=== PATIENT | female | born 1955 | race American Indian/Alaskan Native ===

== ENCOUNTER 2019-05-27 06:12 | Day surgery (SDC) | payer OTHER ==
[2019-05-22 11:22] LABS: Basophils # (Auto) 0.1 K/mm3 (0.0-0.1); Basophils % (Auto) 1.4 % (0.0-1.8); Eosinophils # (Auto) 0.2 K/mm3 (0.0-0.4); Eosinophils % (Auto) 2.4 % (0.0-4.3); Hematocrit 24.3 % (30.3-42.9); Hemoglobin 7.7 gm/dl (10.1-14.3); Lymphocytes # (Auto) 2.1 K/mm3 (1.2-5.4); Lymphocytes % (Auto) 25.3 % (13.4-35.0); Mean Corpuscular HGB Conc 32 % (30-34); Mean Corpuscular Volume 80 fl (79-97); Monocytes # (Auto) 0.6 K/mm3 (0.0-0.8); Monocytes % (Auto) 6.8 % (0.0-7.3); Platelet Count 357 K/mm3 (140-440); Red Blood Count 3.05 M/mm3 (3.65-5.03); Red Cell Distribution Width 16.2 % (13.2-15.2)
[2019-05-22 11:29] LABS: Calcium 9.3 mg/dL (8.4-10.2)
--- NOTE | 2019-05-22 12:25 | Anesthesia Consultation ---
Anesthesia Consult and Med Hx Date of service: 05/22/19 - Airway Anesthetic Teeth Evaluation: Good ROM Head & Neck: Adequate Mental/Hyoid Distance: Adequate Mallampati Class: Class II Intubation Access Assessment: Probably Good - Pulmonary Exam CTA: Yes - Cardiac Exam Cardiac Exam: RRR - Pre-Operative Health Status ASA Pre-Surgery Classification: ASA3 Proposed Anesthetic Plan: General - Pulmonary Hx Smoking: No Hx Asthma: Yes (last inhaler 3 yrs ago) Hx Respiratory Symptoms: No Hx Sleep Apnea: Yes (compliant with CPAP) - Cardiovascular System Hx Hypertension: Yes Hx Heart Attack/AMI: No - Central Nervous System CVA: No - Gastrointestinal Hx Gastroesophageal Reflux Disease: Yes (diet controlled) - Endocrine Hx Renal Disease: Yes (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 Patient denies hx of renal disease however creatinine and potassium elevated on labs drawn in pre-assessment. Will make surgeon aware of lab abnormalities prior to scheduled procedure.
--- NOTE | 2019-05-26 19:12 | History and Physical Report ---
History of Present Illness Date of examination: 05/22/19 History of present illness: Patient has been reassessed/reevaluated. H&P has been reviewed. No interval changes. This is a 64 years old female who presents with postmenopausal bleeding The patient complains of abnormal periods, menorrhagia, and metrorrhagia. She complains of heavy bleeding and clotting. Patient's work up has included hysterosonogram with endometrial biopsy.Pathology consistent endometrial polyp no carcinoma. Diagnosis of post menopausal explained. Malignancy risk explained to patient. Vital Signs: Patient Profile: 64 Years Old Female Height: 50 inches (127 cm) Weight: 191 pounds (86.82 kg) BMI: 53.71 BSA: 1.61 Past History : 2 Term Births: 2 Premature Births: 0 Living Children: 2 Para: 2 Mult. Births: 0 Prev : 2 Aborta: 0 Elect. Ab: 0 Spont. 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 Current Allergies (reviewed today): No known allergies Past Medical History: Diabetes Hypertension Fibroids Past Surgical History: (1973) with Tubal Ligation (1976) Family History Summary: Other family member - Has Family History of Diabetes - Entered On: 04/08/2019 Other family member - Has Family History of Hypertension - Entered On: 04/08/2019 Other family member - Has No Family History of Breast Cancer - Entered On: 04/08/2019 Other family member - Has No Family History of Colon Cancer - Entered On: 04/08/2019 Other family member - Has No Family History of Ovarvian Cancer - Entered On: 04/08/2019 Social History: Marital Status: Children: 2 Occupation: Retired [employer] Smoking History: Patient has never smoked. Risk Factors: Smoked Tobacco Use: Former smoker Smokeless Tobacco Use: Never Passive smoke exposure: no Drug use: no HIV high-risk behavior: no Alcohol use: yes Exercise: yes Seatbelt use: 100 % Review of Systems General Denies fever, chills, sweats, anorexia, fatigue, weakness, malaise, weight loss and sleep disorder. Complains of menorrhagia. Denies vaginal discharge, incontinence, dysuria, hematuria, urinary frequency, amenorrhea, abnormal vaginal bleeding, pelvic pain, genital sores, decreased libido, painful periods, painful sex, urinary urgency, hot flashes, vaginal dryness, vaginal itching and vaginal odor. CV Denies chest pains, palpitations, syncope, dyspnea on exertion, orthopnea, PND and peripheral edema. Resp Denies cough, dyspnea at rest, excessive sputum, hemoptysis, wheezing and pleurisy. GI Denies nausea, vomiting, diarrhea, constipation, change in bowel habits, abdominal pain, melena, hematochezia, jaundice, gas/bloating, indigestion/heartburn, dysphagia and odynophagia. Breast Denies left breast lump, right breast lump, nipple discharge, bloody discharge from nipple, breast pain, abnormal mammogram and breast enlargement. Psych Denies depression, anxiety, irritability and mood swings. Past History Past Medical History: diabetes, hypertension, other (SEE HPI) Past Surgical History: Other (SEE HPI) Social history: other (SEE HPI) Family history: other (SEE HPI) Medications and Allergies Allergies Allergy/AdvReac Type Severity Reaction Status Date / Time No Known Allergies Allergy Verified 05/22/19 12:47 Home Medications Medication Instructions Recorded Confirmed Last Taken Type Aspirin [Adult Aspirin] 81 mg PO DAILY 05/21/19 05/21/19 05/14/19 History Olmesartan/Hydrochlorothiazide 1 each PO DAILY 05/21/19 05/27/19 05/27/19 05:00 History [Olmesartan-Hctz 40-25 mg Tab] Rosuvastatin Calcium 10 mg PO HS 05/21/19 05/27/19 05/26/19 20:00 History Sitagliptin Phosphate [Januvia] 100 mg PO DAILY 05/21/19 05/27/19 05/26/19 09:00 History Active Meds: Active Medications Sodium Chloride (Nacl 0.9% 1000 Ml) 1,000 mls @ 100 mls/hr IV DIRECT KARLENE Midazolam HCl (Versed) 2 mg IV PREOP NR Stop: 05/27/19 18:00 Review of Systems Constitutional: other (SEE HPI) Exam - Physical Exam Narrative exam: HEENT: normocephalic, no lesions or deformities Skin no significant abnormal lesions or rashes Breasts: pendulous skin/areolae normal, no masses, no nipple discharge, no erythema/warmth/tenderness, and axillae normal. 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 Malignancy risk explained to patient. Treatment options discussed including hysteroscopy and hysterectomy..Patient desires least invasive procedure Patient desires hysteroscopy with dilatation and curretage. Discussed risk of surgery including infection, bleeding and risk of perforating her uterus. Questions answered. Patient understands and desires to proceed (2) Hypertension Current Visit: No Status: Chronic Qualifiers: Hypertension type: essential hypertension Qualified Code(s): I10 - Essential (primary) hypertension (3) Diabetes Current Visit: No Status: Acute Qualifiers: Diabetes mellitus type: type 2 Diabetes mellitus complication status: without complication (4) Endometrial polyp Current Visit: No Status: Acute Plan to address problem: Possible etiology of #1
[~2019-05-27 06:12] MED LIST: MIDAZOLAM 2 MG/2 ML INJ IV NR; SODIUM CHLORIDE 0.9% 1000 ML 1,000 ML IV SCH
[2019-05-27] MEDS ORDERED: BACTERIOSTATIC SODIUM CHLORIDE 0.9% 30 ML VIAL INFILTRATI ONE (06:34)
[2019-05-27] MEDS ORDERED: LIDOCAINE MPF (2%) 20 MG/1 ML VIAL 5 ML ONE (06:53)
[2019-05-27] MEDS ORDERED: PROPOFOL 200 MG/20 ML VIAL IV ONE ×2 (06:53→08:27)
[2019-05-27] MEDS ORDERED: ROCURONIUM 50 MG/5 ML INJ IV ONE (06:54)
[2019-05-27] MEDS ORDERED: ONDANSETRON 4 MG/2 ML INJ ONE ×2 (06:54→08:11)
[2019-05-27] MEDS ORDERED: MIDAZOLAM 2 MG/2 ML INJ ONE (06:54)
[2019-05-27] MEDS ORDERED: HYDROmorphone 1 MG/1 ML INJ IV PRN (07:30)
[2019-05-27] MEDS ORDERED: INSULIN REGULAR, HUMAN 100 UNITS/1 ML SUB-Q NR (07:30)
[2019-05-27] MEDS ORDERED: ONDANSETRON 4 MG/2 ML INJ IV PRN (07:30)
[2019-05-27] MEDS ORDERED: fentaNYL 100 MCG/2 ML INJ IV PRN (07:30)
[2019-05-27] MEDS ORDERED: SODIUM CHLORIDE 0.9% IRRIG SOLN 3000 ML IR ONE (08:20)
[2019-05-27] MEDS ORDERED: SODIUM CHLORIDE 0.9% IRR 1,500 ML BOTTLE IR ONE (08:20)
[2019-05-27] MEDS ORDERED: SILVER NITRATE APPLICATOR 1 EA TP ONE ×3 (08:33→08:54)
[2019-05-27] MEDS ORDERED: fentaNYL 100 MCG/2 ML INJ ONE (08:58)
--- NOTE | 2019-05-27 09:18 | Operative Report ---
Operative Report Operative Report: Date of procedure: 07/27/2019 Pre-operative diagnosis: Postmenopausal bleeding with endometrial polyps Post-operative diagnosis: Same Procedure name(s): Hysteroscopy with dilatation and curettage Surgeon: Yunior Davenport MD [employer] Manager: [] Anesthesia: Gen. EBL: Minimal Complications: None Findings: Patient with thickened endometrium and several endometrial polyps seen Specimen(s): Endometrial polyp and endometrial curetting Procedure: Patient was brought to operating room. Where general anesthesia was induced on difficulty. She was placed in the dorsal lithotomy position. Prepped and draped in usual sterile manner. Urinary bladder was emptied with a red rubber catheter. Weighted speculum was placed in the vagina. Tenaculum was placed at 12:00. The cervix was dilated progressively to operative hysteroscope could be placed without any difficulty. The hysteroscope was placed through the cervical os without any complications with the findings noted above. Polyp forceps were used to remove polyps. Performed a banjo curetting until a gritty sensation was felt throughout the uterine cavity removed a moderate amount of tissue. The passes with the polyp forceps revealed no further tissue again the banjo curetting was done without any return of further tissue. Post procedure hysteroscopy showed a thinner endometrium. Our instruments are removed. She did have some oozing from the tenaculum placed on the cervix and some at the introitus or vagina silver nitrate was placed and a vaginal pack was placed we removed in the recovery room. The patient tolerated the procedure well and was awakened in the operating room. Accompanied to the recovery room in good condition
--- NOTE | 2019-05-27 09:20 | Short Stay Summary ---
Short Stay Documentation Date of service: 05/27/19 - History Past Medical History: diabetes, hypertension, other (SEE HPI) Past Surgical History: Other (SEE HPI) Social history: other (SEE HPI) - Allergies and Medications Current Medications: Allergies No Known Allergies Allergy (Verified 05/22/19 12:47) Home Medications Medication Instructions Recorded Confirmed Last Taken Type Aspirin [Adult Aspirin] 81 mg PO DAILY 05/21/19 05/21/19 05/14/19 History Olmesartan/Hydrochlorothiazide 1 each PO DAILY 05/21/19 05/27/19 05/27/19 05:00 History [Olmesartan-Hctz 40-25 mg Tab] Rosuvastatin Calcium 10 mg PO HS 05/21/19 05/27/19 05/26/19 20:00 History Sitagliptin Phosphate [Januvia] 100 mg PO DAILY 05/21/19 05/27/19 05/26/19 09:00 History Active Medications Fentanyl (Sublimaze) 50 mcg IV Q5MIN PRN PRN Reason: Pain , Severe (7-10) Stop: 05/27/19 23:00 Hydromorphone HCl (Dilaudid) 0.5 mg IV Q10MIN PRN PRN Reason: Pain , Severe (7-10) Stop: 05/27/19 23:00 Sodium Chloride (Nacl 0.9% 1000 Ml) 1,000 mls @ 100 mls/hr IV DIRECT KARLENE Last Admin: 05/27/19 07:05 Dose: 100 mls/hr Documented by: Insulin Human Regular (Humulin R) 10 units SUB-Q ONCE NR Stop: 05/27/19 13:00 Last Admin: 05/27/19 07:35 Dose: 10 units Documented by: Midazolam HCl (Versed) 2 mg IV PREOP NR Stop: 05/27/19 18:00 Ondansetron HCl (Zofran) 4 mg IV ONCE PRN PRN Reason: Nausea And Vomiting Stop: 05/27/19 13:00 - Physical exam General appearance: no acute distress Lungs: Normal air movement Breasts: deferred Female Genitourinary: normal Rectal Exam: deferred - Brief post op/procedure progress note Date of procedure: 05/27/19 (see operative note for details) - Hospital course Hospital course: Patient was admitted underwent the above him procedure without any complications. Patient will be discharged with follow-up in office in 1-2 weeks for postop check. - Disposition Condition at discharge: Good Disposition: DC-01 TO HOME OR SELFCARE - Discharge Diagnoses (1) Post-menopausal bleeding Status: Acute (2) Hypertension Status: Chronic Qualifiers: Hypertension type: essential hypertension Qualified Code(s): I10 - Essential (primary) hypertension (3) Diabetes Status: Acute Qualifiers: Diabetes mellitus type: type 2 Diabetes mellitus complication status: without complication (4) Endometrial polyp Status: Acute Short Stay Discharge Plan Activity: advance as tolerated Diet: regular Follow up with: [facility] [Other] - 7 Days Prescriptions: Ibuprofen [Motrin 800 MG tab] 800 mg PO Q6H PRN #30 tablet PRN Reason: Pain Acetaminophen/Codeine [Tylenol #3] 1 tab PO Q4HR PRN #10 tablet PRN Reason: Pain DOXYCYCLINE Hyclate [Vibramycin CAP] 100 mg PO Q12HR #14 capsule
[2019-05-27] MEDS ORDERED: ACETAMINOPHEN W/CODEINE 300-30 MG TAB PO ONE (09:41)
[2019-05-27 11:05] VITALS: BP 131/60
--- NOTE | 2019-05-28 11:03 | Post Anesthesia Evaluation ---
- Post Anesthesia Evaluation Patient Participated: Yes Airway Patent: Yes Stable Respiratory Function: Yes Nausea/Vomiting: No Temp > 96.8F: Yes Pain Manageable: Yes Adequeate Hydration: Yes Anesthesia Complications: No Block Receding Appropriately: Not Applicable Patient on Ventilator: No
== END 2019-05-27 06:13 | disposition home or self-care (01) ==
LOC: OR 06:12
PROVIDERS: ATTEND Obstetrics & Gynecology
DX: N95.0 Postmenopausal bleeding (principal); N84.0 Polyp of corpus uteri; C54.1 Malignant neoplasm of endometrium; E11.9 Type 2 diabetes mellitus without complications; I10 Essential (primary) hypertension; E78.00 Pure hypercholesterolemia, unspecified; J45.909 Unspecified asthma, uncomplicated; G47.30 Sleep apnea, unspecified; E66.9 Obesity, unspecified; K21.9 Gastro-esophageal reflux disease without esophagitis; M19.90 Unspecified osteoarthritis, unspecified site; Z79.82 Long term (current) use of aspirin; Z79.899 Other long term (current) drug therapy; Z98.891 History of uterine scar from previous surgery; Z72.89 Other problems related to lifestyle; Z98.890 Other specified postprocedural states
CPT/HCPCS: 36415; 58558; 80048; 82803; 82962; 85025; 88305; A4217; J2250; J2405; J2704; J3010; J7030; J1815